=== PATIENT | male | born 1985 | race Caucasian/White ===

== ENCOUNTER 2021-05-06 22:15 | Emergency (ER) | payer OTHER ==
[~2021-05-06] VITALS: Ht 175.3 cm; Wt 79.4 kg
--- NOTE | ~2021-05-06 | EMS ---
[address] [address] EMS Patient Care Report Name: LUIS DIXON [id number] Admission: 05/06/21 Attend Phys: Discharge: 05/06/21 Date of : 81 Report #: [id number] THIS REPORT FOR: //name// Report Transmitted: 05/10/2021 11:55 EMS Care Summary [place] [employer] [facility] Incident 21-1255 @ 05/06/2021 21:21 Incident Location [facility] [address] [place] [address] Patient LUIS DIXON Male, 35 Years 1985 Patient Address [address] [place] [address] Patient History Thyroid Disease, Patient Allergies No known allergies, Patient Medications Levothyroxine, Chief Complaint Overdose Disposition Transported No Lights/[place] Dispatch Reason Overdose/Poisoning/Ingestion Transported To [facility] Narrative OFRPDD M1, E2 were dispatched to a local address for a patient who was not breathing. Dispatch advises that it is a possible overdose. M1 arrives and finds a 35 year old male sitting in the passenger seat of a pickup truck, the patient has agonal respirations at a rate of approximately 3 breaths a minute, [address] [address] EMS Patient Care Report Name: LUIS DIXON Room: [facility]#: [id number] Admission: 05/06/21 Attend Phys: Discharge: 05/06/21 Date of : 81 Report #: [id number] with a strong, bounding pulse. The patients states that he took an unknown pill and he was found this way by his friend, then they immediately called 911. M1 moves the patient to the ground, the patient continues having agonal respirations, the patients pulse is now not palpable. Chest compressions are initiated, after approximately one minute 2mg intranasal Narcan is administered. The patients pulse is now strong, agonal respirations continue. Oxygen via BVM is administered, the patient is being ventilated. Another 2mg of intranasal Narcan is administered. The patient is lifted onto the cot and secured, then taken to the ambulance. Once inside the ambulance the patient is connected to the assistant press operator offset to obtain vital signs. SEAN Brady attempts IO access in the left proximal Tib-fib, it is unsuccessful. leaving an IO needle in placed unable to be cannulated. Simultaneously intubation is considered, but not attempted due to the patients jaw being clenched. A 34 Fr NPA is placed and BVM ventilations continue, the patient continues to have a strong pulse and agonal respirations. The patient then quickly regains consciousness and begins to fight as he regains awareness of his surroundings. As the patient calms down the situation is explained to him, he continues to be agitated as he regains full consciousness. The patients vital signs are assessed. The patient is now A&O x4, GCS 15. The patient explains the last things he remembers and what he possibly took. The patient admits to taking one pill, he states that he believes it was a vicodin, but that he got it from a friend. The patient is secured to the cot. MADHAVI Lovell begins transport to [facility]. The patients history and information is obtained. The patient remains A&O x4, GCS 15. The patient complains of pain in his left lower leg at the IO site, as well as chest pain in his sternum 12-lead ECG was obtained showing no ST Segment abnormalities. The patient has CEBBS, IV access was obtained in the left AC. The patients vital signs were continuously monitored while in route. MADHAVI Lovell arrived at [facility] without incident. The patient was taken into the ER via stretcher. The patient slid from the EMS stretcher to the ER cot. The patient was left in the care of the ER physician. DIMASD Nas available. Initial Vitals @21:42P: 116,SpO2: 96, @21:47 @21:54 @21:49P: 108,R: 26,BP: 144/100,GCS: 15,SpO2: 97,Revised Trauma: 12, @21:59P: 109,R: 20,BP: 147/100,GCS: 15,Glucose: 209,SpO2: 97,Revised Trauma: 12, @22:09P: 111,R: 16,BP: 139/101,GCS: 15,SpO2: 95,Revised Trauma: 12, @21:46P: 107,R: 24,GCS: 15,SpO2: 97, @21:32P: 70,R: 3,GCS: 3, [place] [address] EMS Patient Care Report Name: LUIS DIXON [facility] [id number] Admission: 05/06/21 Attend Phys: Discharge: 05/06/21 Date of : 81 Report #: [id number] Impression Overdose - Other opioids Procedures @21:45 NPA Response: UnchangedSucceeded @21:36 Oxygen FlowRate: 25 Device: Bag Valve Mask (BVM) Response: UnchangedSucceeded @21:36 Naloxone - 2 Milligrams (mg) - Intranasal Response: Improved @21:32 Naloxone - 2 Milligrams (mg) - Intranasal Response: Improved @22:02 IV Therapy - Normal Saline (.9% NaCl) 200cc (18 ga) Site: Antecubital-Left Response: UnchangedSucceeded @21:40 Intraosseous - cc (IO (Adult)) Site: NN-Xraec-Goro Proximal Response: UnchangedFailed @21:54 12-Lead ECG @21:47 12-Lead ECG Timeline 21:20,Call Received 21:21,Dispatched 21:22,En Route 21:22,Initial Responder On Scene 21:28,On Scene 21:30,At Patient 21:32,Naloxone - 2 Milligrams (mg) - Intranasal,Response: Improved 21:32,BP: / M,PULSE: 70,RR: 3 R,SPO2: Ox,ETCO2: ,BG: ,PAIN: ,GCS: 3, 21:36,Oxygen FlowRate: 25 Device: Bag Valve Mask (BVM) Response: UnchangedSucceeded, 21:36,Naloxone - 2 Milligrams (mg) - Intranasal,Response: Improved 21:40,Intraosseous - cc IO (Adult) Site: NP-Ujikr-Lucx Proximal,Response: UnchangedFailed, 21:42,BP: / M,PULSE: 116,RR: R,SPO2: 96 Ox,ETCO2: ,BG: ,PAIN: ,GCS: , 21:45,NPA Response: UnchangedSucceeded, 21:46,BP: / M,PULSE: 107,RR: 24 R,SPO2: 97 Ox,ETCO2: ,BG: ,PAIN: ,GCS: 15, 21:47,12-Lead ECG, 21:47,BP: / M,PULSE: ,RR: R,SPO2: Ox,ETCO2: ,BG: ,PAIN: ,GCS: , 21:49,BP: 144/100 M,PULSE: 108,RR: 26 R,SPO2: 97 Ox,ETCO2: ,BG: ,PAIN: ,GCS: 15, 21:51,Depart Scene 21:54,12-Lead ECG, 21:54,BP: / M,PULSE: ,RR: R,SPO2: Ox,ETCO2: ,BG: ,PAIN: ,GCS: , 21:59,BP: 147/100 M,PULSE: 109,RR: 20 R,SPO2: 97 Ox,ETCO2: ,B,PAIN: ,GCS: 15, 22:02,IV Therapy - Normal Saline (.9% NaCl) 200cc 18 ga Site: [place] [address] EMS Patient Care Report Name: LUIS DIXON [id number] Admission: 05/06/21 Attend Phys: Discharge: 05/06/21 Date of : 81 Report #: [id number] Antecubital-Left,Response: UnchangedSucceeded, 22:09,BP: 139/101 M,PULSE: 111,RR: 16 R,SPO2: 95 Ox,ETCO2: ,BG: ,PAIN: ,GCS: 15, 22:15,At Destination 22:18,Transfer Patient 22:50,Call Closed 22:50,In District Disclaimer v1.1 Copyright 202 [employer] This EMS Care Summary contains data elements from the applicable legal record (which may be displayed differently). It is designed to provide pertinent information for the following purposes: continuity of care, clinical quality, and state data reporting. The complete legal record is available to ED staff and administrators of the receiving hospital in [employer] Patient Tracker. All data is provided "as is."
--- NOTE | ~2021-05-06 | EMS ---
[address] [address] EMS Patient Care Report Name: LUIS DIXON [id number] Admission: 05/06/21 Attend Phys: Discharge: 05/06/21 Date of : 81 Report #: [id number] THIS REPORT FOR: //name// Report Transmitted: 05/06/2021 23:42 EMS Care Summary [place] [employer] [facility] Incident 21-1255 @ 05/06/2021 21:21 Incident Location [facility] [address] [place] [address] Patient LUIS DIXON Male, 35 Years 1985 Patient Address [address] [place] [address] Patient History Thyroid Disease, Patient Allergies No known allergies, Patient Medications Levothyroxine, Chief Complaint Overdose Disposition Transported No Lights/[place] Dispatch Reason Overdose/Poisoning/Ingestion Transported To [facility] Narrative OFRPDD M1, E2 were dispatched to a local address for a patient who was not breathing. Dispatch advises that it is a possible overdose. M1 arrives and finds a 35 year old male sitting in the passenger seat of a pickup truck, the patient has agonal respirations at a rate of approximately 3 breaths a minute, [address] [address] EMS Patient Care Report Name: LUIS DIXON Room: [facility]#: [id number] Admission: 05/06/21 Attend Phys: Discharge: 05/06/21 Date of : 81 Report #: [id number] with a strong, bounding pulse. The patients states that he took an unknown pill and he was found this way by his friend, then they immediately called 911. M1 moves the patient to the ground, the patient continues having agonal respirations, the patients pulse is now not palpable. Chest compressions are initiated, after approximately one minute 2mg intranasal Narcan is administered. The patients pulse is now strong, agonal respirations continue. Oxygen via BVM is administered, the patient is being ventilated. Another 2mg of intranasal Narcan is administered. The patient is lifted onto the cot and secured, then taken to the ambulance. Once inside the ambulance the patient is connected to the saddle maker to obtain vital signs. SEAN Brady attempts IO access in the left proximal Tib-fib, it is unsuccessful. leaving an IO needle in placed unable to be cannulated. Simultaneously intubation is considered, but not attempted due to the patients jaw being clenched. A 34 Fr NPA is placed and BVM ventilations continue, the patient continues to have a strong pulse and agonal respirations. The patient then quickly regains consciousness and begins to fight as he regains awareness of his surroundings. As the patient calms down the situation is explained to him, he continues to be agitated as he regains full consciousness. The patients vital signs are assessed. The patient is now A&O x4, GCS 15. The patient explains the last things he remembers and what he possibly took. The patient admits to taking one pill, he states that he believes it was a vicodin, but that he got it from a friend. The patient is secured to the cot. MADHAVI Lovell begins transport to [facility]. The patients history and information is obtained. The patient remains A&O x4, GCS 15. The patient complains of pain in his left lower leg at the IO site, as well as chest pain in his sternum 12-lead ECG was obtained showing no ST Segment abnormalities. The patient has CEBBS, IV access was obtained in the left AC. The patients vital signs were continuously monitored while in route. MADHAVI Lovell arrived at [facility] without incident. The patient was taken into the ER via stretcher. The patient slid from the EMS stretcher to the ER cot. The patient was left in the care of the ER physician. DIMASD Nas available. Initial Vitals @21:42P: 116,SpO2: 96, @21:47 @21:54 @21:49P: 108,R: 26,BP: 144/100,GCS: 15,SpO2: 97,Revised Trauma: 12, @21:59P: 109,R: 20,BP: 147/100,GCS: 15,Glucose: 209,SpO2: 97,Revised Trauma: 12, @22:09P: 111,R: 16,BP: 139/101,GCS: 15,SpO2: 95,Revised Trauma: 12, @21:46P: 107,R: 24,GCS: 15,SpO2: 97, @21:32P: 70,R: 3,GCS: 3, [place] [address] EMS Patient Care Report Name: LUIS DIXON [facility] [id number] Admission: 05/06/21 Attend Phys: Discharge: 05/06/21 Date of : 81 Report #: [id number] Impression Overdose - Other opioids Procedures @21:45 NPA Response: UnchangedSucceeded @21:36 Oxygen FlowRate: 25 Device: Bag Valve Mask (BVM) Response: UnchangedSucceeded @21:36 Naloxone - 2 Milligrams (mg) - Intranasal Response: Improved @21:32 Naloxone - 2 Milligrams (mg) - Intranasal Response: Improved @22:02 IV Therapy - Normal Saline (.9% NaCl) 200cc (18 ga) Site: Antecubital-Left Response: UnchangedSucceeded @21:40 Intraosseous - cc (IO (Adult)) Site: SD-Cextl-Cwtw Proximal Response: UnchangedFailed @21:54 12-Lead ECG @21:47 12-Lead ECG Timeline 21:20,Call Received 21:21,Dispatched 21:22,En Route 21:22,Initial Responder On Scene 21:28,On Scene 21:30,At Patient 21:32,Naloxone - 2 Milligrams (mg) - Intranasal,Response: Improved 21:32,BP: / M,PULSE: 70,RR: 3 R,SPO2: Ox,ETCO2: ,BG: ,PAIN: ,GCS: 3, 21:36,Oxygen FlowRate: 25 Device: Bag Valve Mask (BVM) Response: UnchangedSucceeded, 21:36,Naloxone - 2 Milligrams (mg) - Intranasal,Response: Improved 21:40,Intraosseous - cc IO (Adult) Site: CQ-Krprz-Fwce Proximal,Response: UnchangedFailed, 21:42,BP: / M,PULSE: 116,RR: R,SPO2: 96 Ox,ETCO2: ,BG: ,PAIN: ,GCS: , 21:45,NPA Response: UnchangedSucceeded, 21:46,BP: / M,PULSE: 107,RR: 24 R,SPO2: 97 Ox,ETCO2: ,BG: ,PAIN: ,GCS: 15, 21:47,12-Lead ECG, 21:47,BP: / M,PULSE: ,RR: R,SPO2: Ox,ETCO2: ,BG: ,PAIN: ,GCS: , 21:49,BP: 144/100 M,PULSE: 108,RR: 26 R,SPO2: 97 Ox,ETCO2: ,BG: ,PAIN: ,GCS: 15, 21:51,Depart Scene 21:54,12-Lead ECG, 21:54,BP: / M,PULSE: ,RR: R,SPO2: Ox,ETCO2: ,BG: ,PAIN: ,GCS: , 21:59,BP: 147/100 M,PULSE: 109,RR: 20 R,SPO2: 97 Ox,ETCO2: ,B,PAIN: ,GCS: 15, 22:02,IV Therapy - Normal Saline (.9% NaCl) 200cc 18 ga Site: [place] [address] EMS Patient Care Report Name: LUIS DIXON [id number] Admission: 05/06/21 Attend Phys: Discharge: 05/06/21 Date of : 81 Report #: [id number] Antecubital-Left,Response: UnchangedSucceeded, 22:09,BP: 139/101 M,PULSE: 111,RR: 16 R,SPO2: 95 Ox,ETCO2: ,BG: ,PAIN: ,GCS: 15, 22:15,At Destination 22:18,Transfer Patient 22:50,Call Closed 22:50,In District Disclaimer v1.1 Copyright 202 [employer] This EMS Care Summary contains data elements from the applicable legal record (which may be displayed differently). It is designed to provide pertinent information for the following purposes: continuity of care, clinical quality, and state data reporting. The complete legal record is available to ED staff and administrators of the receiving hospital in [email or web address] Patient Tracker. All data is provided "as is."
[2021-05-06 22:39] LABS: HEMOGLOBIN 13.9 gm/dL (14.0-18.0); MCH 31.6 pg (26.0-34.0); MCHC 33.9 g/dL (28.0-37.0); MCV 93.2 fL (80.0-100.0); MPV 8.5 fl. (7.2-11.1); RBC 4.4 mil/uL (4.50-6.00); RDW-CV 13.5 % (10.5-14.5); WBC 14.1 thou/uL (4.0-11.0)
[2021-05-06 22:47] LABS: CREATININE 1.2 mg/dL (0.6-1.3)
[2021-05-06 22:52] LABS: ALBUMIN 3.9 g/dL (3.4-5.0); TOTAL BILIRUBIN 0.2 mg/dL (<0.1-1.0); TOTAL PROTEIN 7.1 g/dL (6.4-8.2)
[2021-05-06 23:00] VITALS: BP 136/96
[2021-05-06 23:04] LABS: ALCOHOL < 10 mg/dL (<10); SALICYLATE 2.8 mg/dL (2.8-20.0)
[2021-05-06 23:08] LABS: ACETAMINOPHEN < 2 ug/mL (10-30)
--- NOTE | 2021-05-07 11:58 | EKG ---
[place] [address] ELECTROCARDIOGRAM REPORT Name: LUIS DIXON Room: 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: : 1985 Requested By: Anu Griffin Order Number: [id number] MD: Jemal Dacosta Measurements Intervals [place] Rate: 84 P: 44 [place]: 170 QRS: -76 QRSD: 119 T: 50 QT: 415 QTc: 491 Interpretive Statements Sinus rhythm LAD, consider left anterior fascicular block No previous ECG available for comparison Electronically Signed On 05-07-2021 11:58:08 ELECTROENCEPHALOGRAPHIC TECHNICIAN by Jemal Dacosta [email or web address] <ELECTRONICALLY SIGNED> By: Jemal Dacosta MD, [facility] 05/07/21 1158 21 21 Jemal Dacosta MD, [facility] /EPI
== END 2021-05-06 23:00 | disposition left against medical advice (07) ==
LOC: M.ERS 22:15
PROVIDERS: Personal Emergency Response Attendant
DX: T40.2X1A Poisoning by other opioids, accidental (unintentional), initial encounter (principal); Y92.89 Other specified places as the place of occurrence of the external cause